=== PATIENT | male | born 1970 | race Caucasian/White ===

== ENCOUNTER 2016-06-10 21:04 | Observation (INO) | payer BC ==
--- NOTE | ~2016-06-10 | HP ---
History And Physical [address] [id number] [facility] [place]. [address] NAME: LAKISHA RIZZO : 74 STATUS : DIS Glenny PAT#: [id number] AGE: 45 ADM/REG DATE : 06/10/16 MR#: [id number] REPORT SERV DATE: 06/11/16 DICTATED BY: ARMANDO YADAV DATE: 06/11/16 REPORT STATUS : Draft TRANSCRIBED BY: MODMelisa DATE: 06/11/16 DATE OF ADMISSION: 06/10/2016 CHIEF COMPLAINT: A hard spot behind the ear, stiff neck, and chest pain. HISTORY OF PRESENT ILLNESS: This is a 45-year-old white male with a history of tobacco use and obesity. He has no cardiac history and no other risk factors including no high blood pressure, cholesterol, or diabetes. He presented to the emergency department yesterday evening with a swelling behind the ear, neck stiffness/pain. He did incidentally note a small nodule behind his ear. He also came because he had chest pain. ER gave Robaxin, morphine, and Zofran. This eased off his neck stiffness and pain. Later on, they provided him nitroglycerin paste as he developed chest pain in the emergency room. He previously noted several weeks of intermittent chest squeezing. This occurs "at random." It is not brought on by exertion. He has had multiple episodes of two seconds to one and a half minutes in length. Separately, he also has had several episodes of left arm pain again at random. He feels hot with chest pain and sweaty on the left side of his face. He denies any nausea. He does have associated shortness of breath with the chest pain. Currently, he is chest pain-free and no shortness of breath. No syncope or presyncope. No palpitations. His neck is still stiff, although did improve after pain medication in the ER. PAST MEDICAL HISTORY: 1. Obesity. 2. Tobacco use. 3. Migraines. 4. Arthritis. 5. Left knee "gives out at times.". PAST SURGICAL HISTORY: 1. Shoulder surgery x3. 2. Elbow surgery. 3. Left knee repair x2. SOCIAL HISTORY: Lives with his girlfriend. He works as a long-distance trailer tank truck driver, long days. He denies any formal exercise program, although says he is able to care for his child without any incident. He smokes one pack per day for 30 years. He denies any alcohol or illicit drug use. No formal exercise program. FAMILY HISTORY: Noncontributory for CAD. REVIEW OF SYSTEMS: The patient denies ever having a cardiac evaluation. He denies any other symptoms other than previously described with no upper respiratory symptoms. No myalgias. As above per HPI, all other systems reviewed and negative. ALLERGIES: NO KNOWN ALLERGIES. History And Physical [address] [address] NAME: LAKISHA RIZZO : 74 STATUS : DIS Glenny PAT#: [id number] AGE: 45 ADM/REG DATE : 06/10/16 MR#: [id number] REPORT SERV DATE: 06/11/16 DICTATED BY: ARMANDO YADAV DATE: 06/11/16 REPORT STATUS : Draft TRANSCRIBED BY: REGINO DATE: 06/11/16 HOME MEDICATIONS: Reviewed and are as follows. 1. Ibuprofen 400 mg p.o. four times per day as needed for pain. 2. [employer] 1 tablet p.o. three times per day as needed for pain, prescribed 1 tablet four times per day per [facility]. PHYSICAL EXAMINATION: VITAL SIGNS: Oxygen saturation 98% on room air, height 180 cm, weight 102 kg, and BMI 31.4. Temperature 97.8, pulse 60, respiratory rate 13, and blood pressure 109/67. GENERAL: Well developed, well nourished. In no apparent distress. HEENT: Head normocephalic. No xanthelasma. Sclera clear, anicteric. Moist mucous membranes without pallor. No lymphadenopathy. No deficits noted. NECK: Trachea midline. Supple. No thyromegaly, JVD, or bruits. RESPIRATORY: Unlabored respirations. Breath sounds clear bilaterally to posterior auscultation. No wheezes, rhonchi or crackles. CARDIOVASCULAR: Regular rate and rhythm. No murmur, rub, or gallop appreciated. No chest wall tenderness to palpation. ABDOMEN: Soft, nontender, and nondistended. Active bowel sounds auscultated x4 quadrants. No organomegaly and no masses. No aortic bruit. EXTREMITIES: DP/PT and radial pulses 2+ bilaterally. No clubbing, cyanosis, or edema. SKIN: Warm, dry, intact. No rash. Normal turgor. MUSCULOSKELETAL: Moves all extremities in bed without difficulty. NEURO/PSYCH: Alert and oriented x3 with no acute distress. Affect appropriate to current situation. LABORATORY DATA: BMP: Sodium 141; potassium initially 3.7, after repletion 4; creatinine 1.15; glucose 101. Magnesium 2. CBC: White blood cell count 4.6, hemoglobin 14.3, hematocrit 40, platelets 202. Troponin less than 0.02 x3. STUDIES: Chest x-ray: Lungs clear. Heart size is normal. C-spine, AP and lateral, minimal osteophyte formation and facet arthropathy. No acute cervical spine abnormality. Telemetry, normal sinus rhythm. Treadmill only stress test Thor stage III achieved with 6/10 chest pain. No ischemic EKG changes. Overall, low risk stress test, and this was performed today. ASSESSMENT AND PLAN: 1. Precordial chest pain, three negative troponins. EKG is benign. Cardiac risk factors were obesity and tobacco usage. I ordered a treadmill only stress test given those cardiac risk factors. It was considered to be an overall low risk stress test with no ischemic EKG changes and Thor stage III achieved. He will be discharged to home as it is low risk and he is to follow up with his primary care provider. 2. Tobacco use. I advised cessation. History And Physical [address] [address] NAME: LAKISHA RIZZO : 74 STATUS : DIS Glenny PAT#: [id number] AGE: 45 ADM/REG DATE : 06/10/16 MR#: [id number] REPORT SERV DATE: 06/11/16 DICTATED BY: ARMANDO YADAV DATE: 06/11/16 REPORT STATUS : Draft TRANSCRIBED BY: REGINO DATE: 06/11/16 3. Obesity. Encouraged weight loss and a heart-healthy diet. 4. Neck pain. The ER performed an x-ray, which did not show any acute cervical spine abnormality with minimal osteophyte formation and facet arthropathy. He is to follow up with primary care provider. His symptoms improved with pain medications in the emergency room. 5. No PCP. manager motor is assisting him as he does have health insurance. The patient was also seen down in the stress testing area by rounding security tech for [employer]. Please see above mentioned providers. ALICIA/REGINO Armando Yadav NP / [id number] CC: Karen Angel, ROSAURA, TECHNICAL SUPPORT 1 SOFTWARE ENGINEER-BC NO PCP
[2016-06-10 21:34] LABS: BASOPHILS 0.9 %; BASOPHILS ABSOLUTE 0.04 10/3/uL (0.0-0.16); EOSINOPHILS 4.3 %; ER CBC TAT 0 Hrs 05 Mins; HEMOGLOBIN 14.3 g/dL (13.6-17.8); IMMATURE GRANULOCYTES 0.4 %; IMMATURE GRANULOCYTES ABSOLUTE 0.02 10/3/uL (0.0-0.11); LYMPHOCYTES ABSOLUTE 2.21 10/3/uL (0.67-4.30); MANUAL DIFF NO %; MEAN CORPUS HGB CONC 35.8 g/dL (32.0-36.0); MEAN CORPUSCULAR VOLUME 89.5 fL (80-100); MEAN PLATELET VOLUME 11.2 fL (9.2-13.0); MONOCYTES 6.5 %; NEUTROPHILS 39.9 %; NEUTROPHILS ABSOLUTE 1.83 10/3/uL (2.02-8.40); PLATELET COUNT 202 10/3/uL (150-400); RBC DISTRIBUTION WIDTH 12.4 % (12.0-16.0); RED CELL COUNT 4.47 10/6/uL (4.7-6.1); WHITE BLOOD CELLS 4.6 10/3/uL (4.5-10.5)
[2016-06-10 21:42] LABS: INTERNATIONAL NORMAL RATI 1.1 UNITS (-); PARTIAL THROMBO TIME 33.7 SEC (22.5-37.2); PROTIME (NOT ORD) 13.9 SEC (12.0-14.5)
[2016-06-10 21:51] LABS: BUN (BLOOD UREA NITROGEN) 12 MG/DL (6-23); CALCIUM, SERUM 8.6 MG/DL (8.5-10.4); CHEST PAIN PROFILE TAT 0 Hrs 22 Mins; CHLORIDE, SERUM 102 MMOL/L (96-112); CO2 (CARBON DIOXIDE) 31 MMOL/L (24-34); CREATININE 1.12 MG/DL (0.70-1.30); GFR AFRICAN AMERICAN 93 ML/MIN (>=60); GFR NON AFRICAN AMERICAN 80 ML/MIN (>=60); GLUCOSE, SERUM 88 MG/DL (60-99); POTASSIUM, SERUM 3.7 MMOL/L (3.5-5.3); SODIUM, SERUM 140 MMOL/L (135-148); TROPONIN I <0.02 NG/ML (<0.05)
[2016-06-10] MEDS ORDERED: ADVIL PO (21:54)
[2016-06-10] MEDS ORDERED: NORCO1 TA2 PO (21:58)
[2016-06-11 04:20] LABS: TROPONIN I <0.02 NG/ML (<0.05)
[2016-06-11 06:00] LABS: SODIUM, SERUM 141 MMOL/L (135-148)
[2016-06-11 06:02] LABS: BUN (BLOOD UREA NITROGEN) 12 MG/DL (6-23); CALCIUM, SERUM 8.6 MG/DL (8.5-10.4); CHLORIDE, SERUM 106 MMOL/L (96-112); CO2 (CARBON DIOXIDE) 27 MMOL/L (24-34); CREATININE 1.15 MG/DL (0.70-1.30); GFR AFRICAN AMERICAN 90 ML/MIN (>=60); GFR NON AFRICAN AMERICAN 78 ML/MIN (>=60); GLUCOSE, SERUM 101 MG/DL (60-99)
== END 2016-06-11 12:20 | disposition home or self-care (01) ==
LOC: ER 21:04 → SSU1 22:35
PROVIDERS: Clinical Nurse Specialist; Emergency Medicine
DX: R07.2 Precordial pain (principal); E66.9 Obesity, unspecified; G43.909 Migraine, unspecified, not intractable, without status migrainosus; M19.90 Unspecified osteoarthritis, unspecified site; M54.2 Cervicalgia; F17.210 Nicotine dependence, cigarettes, uncomplicated; Z98.890 Other specified postprocedural states
CPT/HCPCS: 71020; 72040; 80048; 83735; 84484; 85025; 85610; 85730; 93005; 94640; 96374; 96375; 99285; A9270-GY; G0378; J2405; J2800